=== PATIENT | female | born 1980 | race Caucasian/White ===

== ENCOUNTER 2023-02-11 14:47 | Outpatient (CLI) | payer BC | END 2023-02-11 14:48 | disposition home or self-care (01) | LOC: BICMAMMO 14:47 | PROVIDERS: ATTEND Physician Assistant | DX: N63.20 Unspecified lump in the left breast, unspecified quadrant (principal); N60.02 Solitary cyst of left breast | CPT/HCPCS: G0279 ==

== ENCOUNTER 2023-08-13 08:19 | Outpatient (CLI) | payer BC | END 2023-08-13 08:20 | disposition home or self-care (01) | LOC: BICMAMMO 08:19 | PROVIDERS: ATTEND Physician Assistant | DX: R92.8 Other abnormal and inconclusive findings on diagnostic imaging of breast (principal); N63.20 Unspecified lump in the left breast, unspecified quadrant | CPT/HCPCS: G0279 ==